=== PATIENT | male | born 1990 | race African-American/Black ===

== ENCOUNTER 2017-07-29 00:20 | Emergency (ER) | payer OTHER ==
[2017-07-29 00:31] LABS: BASOPHIL COUNT 0.1 K/uL (0-0.1); EOSINOPHIL (%) 0.6 % (0-5); EOSINOPHIL COUNT 0.1 K/uL (0-0.3); IMMATURE GRANULOCYTE (%) 0.4 % (0.0-0.7); IMMATURE GRANULOCYTE COUNT 0.1 K/uL; INSTRUMENT ABS NEUTROPHIL CT 7.9 K/uL; LYMPHOCYTE COUNT 4.6 K/uL (1.0-2.8); MCH 31.1 PG (29.0-34.0); MCHC 33.4 G/DL (30.0-36.0); MEAN PLAT.VOLUME 9.8 uM^3 (9.0-12.4); MONOCYTE (%) 5.6 % (3-12); MONOCYTE COUNT 0.8 K/uL (0-0.8); NEUTROPHIL (%) 58.7 % (45-76); NEUTROPHIL COUNT 7.9 K/uL (1.8-6.4); PLATELET COUNT 291 K/uL (156-360); RBC DIS.WIDTH-CV 12.5 % (11.8-14.6); RBC DIS.WIDTH-SD 42.9 % (39-53); RED BLOOD COUNT 4.41 M/uL (4.00-5.50); WHITE BLOOD COUNT 13.4 K/uL (4.1-10.2)
[2017-07-29 00:41] LABS: AMYLASE 115 IU/L (1-118); CHLORIDE 104 mEq/L (99-109); POTASSIUM 3.6 mEq/L (3.7-5.4); SODIUM 139 mEq/L (136-147)
[2017-07-29 00:43] LABS: GLUCOSE 97 mg/dL (70-99)
[2017-07-29 00:44] LABS: ANION GAP 10 MEQ/L (2-14)
[2017-07-29 00:46] LABS: SERUM ETHYL ALCOHOL < 10 mg/dL
[2017-07-29 00:47] LABS: UREA NITROGEN (BUN) 10 mg/dL (9-23)
[2017-07-29 00:49] LABS: LIPASE 33 U/L (1.0-51.0)
[2017-07-29 00:51] LABS: GFR ESTIMATE (CALCULATED) > 59 mL/min/
[2017-07-29] MEDS ORDERED: KEFLEX500 MG PO (01:12)
== END 2017-07-29 01:55 | disposition home or self-care (01) ==
LOC: TRA 00:20 → EDBD 00:20 → TRA 00:20
PROVIDERS: Emergency Medicine
DX: S71.131A Puncture wound without foreign body, right thigh, initial encounter (principal); Y24.9XXA Unspecified firearm discharge, undetermined intent, initial encounter
CPT/HCPCS: 73560; 80048; 81003; 82150; 83690; 85025; 86850; 86900; 86901; G0480